=== PATIENT | female | born 1995 | race Caucasian/White ===

== ENCOUNTER 2016-10-03 03:35 | Emergency (ER) | payer BC ==
[2016-10-03 03:48] VITALS: BP 115/75; TEMP 97.1
--- NOTE | 2016-10-03 04:06 | ED.PDOC ---
History of Present Illness - General Chief Complaint: Problem Stated Complaint: painful urination, frequency Time Seen by Provider: 10/03/16 04:04 Source: patient, RN notes reviewed, Vital Signs reviewed Exam Limitations: no limitations - History of Present Illness Initial Comments: Patient is a 21 y/o female who has had dysuria for the past 2-3 hours. Pain only with urination. No vaginal discharge, no flank pain. Timing/Duration: 1-3 hours Severity: moderate Improving Factors: nothing Worsening Factors: other - urinating Associated Symptoms: denies symptoms Allergies/Adverse Reactions: Allergies NO KNOWN ALLERGY Allergy (Verified 12/14/13 15:27) Home Medications: Ambulatory Orders Buspar 10/03/16 Ciprofloxacin HCl [Cipro] 250 mg PO BID #6 tab 10/03/16 Review of Systems - Review of Systems Constitutional: States: no symptoms reported EENTM: States: nose congestion, throat pain Respiratory: States: no symptoms reported Cardiology: States: no symptoms reported Gastrointestinal/Abdominal: States: no symptoms reported Genitourinary: States: dysuria, frequency. Denies: discharge Musculoskeletal: States: no symptoms reported Skin: States: no symptoms reported Neurological: States: no symptoms reported Endocrine: States: no symptoms reported Hematologic/Lymphatic: States: no symptoms reported All other Systems: Reviewed and Negative Past Medical History (General) - Patient Medical History Hx Seizures: No Hx Stroke: No Hx Asthma: No Hx of COPD: No Hx Cardiac Disorders: No Hx Congestive Heart Failure: No Hx Pacemaker: No Hx Hypertension: No Hx Diabetes: No Hx MRSA: No Surgical History: appendectomy - Vaccination History Hx Tetanus, Diphtheria Vaccination: Yes Hx Influenza Vaccination: No - Social History Hx Alcohol Use: No Hx Substance Use: No Hx Physical Abuse: No Hx Emotional Abuse: No - Female History Patient is a Female of Child Bearing Age (10 -59 yrs old): Yes Patient : No Family Medical History - Family History Mother Family History: No Known Living Status: Still Living Physical Exam - Physical Exam General Appearance: Alert, Comfortable, No apparent distress Ears, Nose, Throat: hearing grossly normal, normal ENT inspection Neck: full range of motion Respiratory: lungs clear, normal breath sounds, no respiratory distress, no accessory muscle use Cardiovascular/Chest: regular rate, rhythm, no edema, no gallop, no murmur Gastrointestinal/Abdominal: non tender, soft, no organomegaly, no pulsatile mass Back Exam: normal inspection, no CVA tenderness Extremity: normal range of motion, non-tender, normal inspection Neurologic: alert, normal mood/affect, oriented x 3 Skin Exam: normal color, warm/dry Progress - Results/Orders Results/Orders: 10/03/16 03:44 Temperature 97.1 F L Pulse Rate [ 82 Right] Respiratory 16 Rate Blood Pressure 115/75 [Left Arm] 10/03/16 03:49 UA [URINALYSIS] Stat 10/03/16 04:18 Ciprofloxacin [Cipro] 250 mg PO ONCE ONE Laboratory Results Urine Color [place] (Yellow) H 10/03/16 03:49 Urine Appearance Cloudy (Clear) 10/03/16 03:49 Urine pH 6.0 (4.5-7.8) 10/03/16 03:49 Ur Specific [place] 1.025 (1.005-1.030) 10/03/16 03:49 Urine Protein 100 mg/dL H 10/03/16 03:49 Urine Glucose (UA) 100 mg/dL (Negative) H 10/03/16 03:49 Urine Ketones Negative mg/dL (NEGATIVE) 10/03/16 03:49 Urine Blood Large (Negative) H 10/03/16 03:49 Urine Nitrite Positive H 10/03/16 03:49 Urine Bilirubin Small (NEGATIVE) H 10/03/16 03:49 Urine Urobilinogen 1.0 mg/dL (0.2-1.0) 10/03/16 03:49 Ur Leukocyte Esterase Small (Negative) H 10/03/16 03:49 Urine RBC Tntc /hpf H 10/03/16 03:49 Urine WBC 5-10 /hpf H 10/03/16 03:49 Ur Epithelial Cells 3-5 /hpf 10/03/16 03:49 Urine Bacteria 1+ 10/03/16 03:49 Departure - Departure Clinical Impression: Urinary tract infection Qualifiers: Urinary tract infection type: site unspecified Hematuria presence: with hematuria Qualifier Code: (N39.0) Urinary tract infection, site not specified Time of Disposition: 04:19 Disposition: Discharge to Home or Self Care Condition: Excellent Departure Forms: ED Discharge - Pt. Copy, Patient Portal Self Enrollment Instructions: Urinary Tract Infection, DI for Urinary Tract Infection (UTI) Diet: resume usual diet Prescriptions: Ciprofloxacin HCl [Cipro] 250 mg PO BID #6 tab Home Medications: Ambulatory Orders Buspar 10/03/16 Ciprofloxacin HCl [Cipro] 250 mg PO BID #6 tab 10/03/16 Additional Instructions: Stay well-hydrated. Follow up with PCP if symptoms persist or ED if symptoms worsen.
[2016-10-03] MEDS ORDERED: CIPROFLOXACIN 250 MG TAB PO ONE (04:18)
[2016-10-03 04:30] VITALS: O2SAT 100
== END 2016-10-03 04:30 | disposition home or self-care (01) ==
LOC: ER 03:35
DX: N39.0 Urinary tract infection, site not specified (principal)

== ENCOUNTER → 2017-11-09 | Outpatient (CLI) | payer BC | LOC: GMAJ 11:31 | PROVIDERS: ATTEND Family Medicine | DX: R00.0 Tachycardia, unspecified (principal) ==

== ENCOUNTER → 2017-11-13 | Outpatient (CLI) | payer BC ==
--- NOTE | 2017-11-13 13:30 | US ---
EXAM DESCRIPTION: Soft Tissue,Head/Neck CLINICAL HISTORY: 22 years, Female, [place] [id number] COMPARISON: None. FINDINGS: Thyroid ultrasound demonstrates a normal size, shape, and echotexture of the thyroid gland Isthmus is normal measuring 1.6 mm in thickness. The right lobe measures 3.6 x 1.3 x 0.83 cm. The left lobe measures 3.3 x 1.3 x 1 cm. There is no dominant nodule or mass. No measurable thyroid lesion. No abnormal lymph nodes are identified on the submitted images of the anterior neck. IMPRESSION: No focal thyroid lesion. Electronically signed by: Deng Gayle MD 11/13/2017 1:29 PM CDT
== END ==
LOC: US 09:03
PROVIDERS: ATTEND Family Medicine
DX: R59.0 Localized enlarged lymph nodes (principal)

== ENCOUNTER 2018-06-02 10:58 | Emergency (ER) | payer BC ==
[2018-06-02 11:15] VITALS: O2SAT 98
--- NOTE | 2018-06-02 11:19 | ED.PDOC ---
History of Present Illness - General Chief Complaint: General Stated Complaint: cough,fever, headache Time Seen by Provider: 06/02/18 11:09 Source: patient Exam Limitations: no limitations - History of Present Illness Initial Comments: Patient presents with a cough since yesterday. It is productive of green sputum. She has had clear nasal exudates. She says she measured an oral temperature of 100.8 today. Mild nausea today. No vomiting. Has general body aches. No abdominal pain. Has sinus congestion. No similarly sick contacts. No other complaints. Timing/Duration: 24 hours Severity: mild Improving Factors: nothing Worsening Factors: nothing Associated Symptoms: denies symptoms Allergies/Adverse Reactions: Allergies NO KNOWN ALLERGY Allergy (Verified 12/14/13 15:27) Home Medications: Ambulatory Orders NK [NK] 06/02/18 Review of Systems - Review of Systems Constitutional: States: see HPI EENTM: States: see HPI Respiratory: States: see HPI Cardiology: States: no symptoms reported Gastrointestinal/Abdominal: States: see HPI Genitourinary: States: no symptoms reported Musculoskeletal: States: no symptoms reported Skin: States: no symptoms reported Neurological: States: no symptoms reported Endocrine: States: no symptoms reported Hematologic/Lymphatic: States: no symptoms reported Past Medical History (General) - Patient Medical History Hx Seizures: No Hx Stroke: No Hx Asthma: No Hx of COPD: No Hx Cardiac Disorders: No Hx Congestive Heart Failure: No Hx Pacemaker: No Hx Hypertension: No Hx Diabetes: No Hx MRSA: No Surgical History: appendectomy, tonsillectomy - Vaccination History Hx Tetanus, Diphtheria Vaccination: Yes Hx Influenza Vaccination: No - Social History Hx Alcohol Use: Yes Hx Substance Use: No Hx Physical Abuse: No Hx Emotional Abuse: No - Female History Patient is a Female of Child Bearing Age (10 -59 yrs old): Yes Patient : No Family Medical History - Family History Mother Family History: No Known Living Status: Still Living Physical Exam - Physical Exam General Appearance: Alert Eye Exam: bilateral normal Ears, Nose, Throat: other - TMs clear. Bilateral clear nasal exudates. Mild nasal and maxillary sinus tenderness. No frontal sinus tenderness. OP clear. Right anterior cervical LAD, NT,mobile and fluctuant, approx. 1 cm in diamter. Trachea midline. Neck: non-tender, full range of motion, supple, lymphadenopathy (R) Respiratory: lungs clear, normal breath sounds Cardiovascular/Chest: normal peripheral pulses, regular rate, rhythm Gastrointestinal/Abdominal: normal bowel sounds, non tender, soft Back Exam: normal inspection, no CVA tenderness Progress - Progress Progress: 06/02/18 12:03 Rapid strep negative. Influenza negative. Likely viral bronchitis and URI. Care instructions given. E.R. warnings given. Questions were elicited and answered. Patient voiced understanding and agreement with the plan. Departure - Departure Clinical Impression: Upper respiratory infection, Bronchitis Disposition: Discharge to Home or Self Care Condition: Good Departure Forms: ED Discharge - Pt. Copy, Patient Portal Self Enrollment Diet: resume usual diet Activity: increase activity as tolerated Referrals: Behzad Johns MD [Primary Care Provider] - 1-2 Weeks Home Medications: Ambulatory Orders NK [NK] 06/02/18 Additional Instructions: Increase oral fluids. Over the counter cough and cold medications as directed. Return to the E.R. if fever lasts longer than 2 more days or for shortness of breath.
[2018-06-02 12:15] VITALS: BP 129/82; TEMP 97.9
== END 2018-06-02 12:08 | disposition home or self-care (01) ==
LOC: ER 10:58
DX: J06.9 Acute upper respiratory infection, unspecified (principal); J40 Bronchitis, not specified as acute or chronic

== ENCOUNTER → 2018-07-04 | Outpatient (CLI) | payer BC | LOC: GMAJ 14:19 | PROVIDERS: ATTEND Family Medicine | DX: Z00.00 Encounter for general adult medical examination without abnormal findings (principal) ==

== ENCOUNTER → 2019-01-16 | Outpatient (CLI) | payer BC | DX: R00.2 Palpitations (principal) ==

== ENCOUNTER → 2020-06-08 | Outpatient (CLI) | payer OTHER | LOC: LAB.O 14:04 | PROVIDERS: ATTEND Obstetrics & Gynecology | DX: Z34.02 Encounter for supervision of normal first pregnancy, second trimester (principal); Z3A.00 Weeks of gestation of pregnancy not specified ==

== ENCOUNTER → 2020-06-18 | Outpatient (CLI) | payer OTHER | LOC: LAB.O 07:37 | PROVIDERS: ATTEND Obstetrics & Gynecology | DX: Z34.02 Encounter for supervision of normal first pregnancy, second trimester (principal) ==